=== PATIENT | female | born 2000 | race Two or more races ===

== ENCOUNTER 2023-02-15 06:20 | Inpatient (IN) | payer MEDICAID ==
[~2023-02-15] VITALS: Ht 160 cm; Wt 81.6 kg
[2023-02-15] MEDS ORDERED: OXYTOCIN 30 UNITS/500ML NS PMX 500 ML IV SCH ×2 (10:15)
[2023-02-15] MEDS ORDERED: METHYLERGONOVINE MALEATE 0.2 MG/ML IM PRN ×2 (10:15)
[2023-02-15] MEDS ORDERED: CARBOPROST TROMETHAMINE 250 MCG/ML AMPUL IM PRN (10:15)
[2023-02-15] MEDS ORDERED: LACTATED RINGERS 1,000 ML IV SCH (10:15)
[2023-02-15 10:27] LABS: BASOPHILS % 0.1 % (0.0-2.0); EOSINOPHILS % 0.4 % (0.0-5.0); HEMATOCRIT. 34.4 % (36.0-48.0); HEMOGLOBIN. 11.6 g/dL (12.0-16.0); LYMPHOCYTES % 10.2 % (20.0-50.0); MEAN CORPUSCULAR HEMOGLOBIN 28.7 pg (28.0-32.0); MEAN CORPUSCULAR VOLUME 85.6 fL (81.0-99.0); MEAN PLATELET VOLUME 9.2 fl (7.4-10.4); MONOCYTES % 3.9 % (2.0-8.0); NEUTROPHILS % 85.4 % (40.0-76.0); PLATELET 243 x1000/uL (130-400); RED BLOOD CELL COUNT 4.02 mill/uL (4.2-5.4); RED CELL DISTRIBUTION WIDTH 14.4 % (11.6-14.6)
[2023-02-15 10:41] LABS: INR 0.9; PARTIAL THROMBOPLASTIN TIME 26.2 sec (23.4-31.0); PROTHROMBIN TIME 10.1 sec (9.6-11.0)
[2023-02-15 12:24] VITALS: O2SAT 99
[2023-02-15 13:12] VITALS: BP 102/65; PULSE 100; RESP 20; TEMP 98.6
[2023-02-15 14:17] LABS: HEPATITIS B SURFACE ANTIGEN NEGATIVE
[2023-02-15 16:10] VITALS: BP 119/68; PULSE 98; RESP 18; TEMP 98.4
[2023-02-15 20:00] VITALS: BP 124/66; PULSE 90; RESP 18; TEMP 98.4; O2SAT 97
[2023-02-15] MEDS: IBUPROFEN 800MG TABLET PO PRN (21:02)
[2023-02-15 21:51] LABS: CLARITY URINE CLOUDY (CLEAR); COLOR URINE ORANGE (YELLOW); KETONES URINE NEGATIVE (NEGATIVE); LEUKOCYTE ESTERASE URINE TRACE (NEGATIVE); NITRITE URINE NEGATIVE (NEGATIVE); OCCULT BLOOD URINE 3+ (NEGATIVE); PH URINE 6.5 (4.5-8.0); PROTEIN URINE TRACE (NEGATIVE); SPECIFIC GRAVITY URINE 1.015 (1.005-1.030); UROBILINOGEN URINE 0.2 E.U./dL (0.2-1.0)
[2023-02-15 22:12] LABS: *AMPHETAMINES SCREEN URINE NEGATIVE (NEGATIVE); *BARBITURATES SCREEN URINE NEGATIVE (NEGATIVE); *BENZODIAZEPINES SCREEN URINE NEGATIVE (NEGATIVE); *COCAINE SCREEN URINE NEGATIVE (NEGATIVE); CANNABINOID URINE SCREEN NEGATIVE (NEGATIVE); METHADONE URINE SCREEN NEGATIVE (NEGATIVE); OPIATES URINE SCREEN NEGATIVE (NEGATIVE); PHENCYCLIDINE URINE SCREEN NEGATIVE (NEGATIVE)
[2023-02-16 04:00] VITALS: BP 115/67; PULSE 85; RESP 18; TEMP 98
[2023-02-16] MEDS: IBUPROFEN 800MG TABLET PO PRN ×3 (06:18→22:03)
[2023-02-16 07:30] VITALS: BP 112/69; PULSE 87; RESP 18; TEMP 97.9; O2SAT 97
[2023-02-16 07:30] LABS: BASOPHILS % 0.4 % (0.0-2.0); HEMOGLOBIN. 10.1 g/dL (12.0-16.0); LYMPHOCYTES % 20.2 % (20.0-50.0); MEAN CORPUSCULAR HEMOGLOBIN 29.5 pg (28.0-32.0); MEAN CORPUSCULAR VOLUME 84.7 fL (81.0-99.0); MEAN PLATELET VOLUME 8.7 fl (7.4-10.4); MONOCYTES % 5.3 % (2.0-8.0); NEUTROPHILS % 72.1 % (40.0-76.0); PLATELET 231 x1000/uL (130-400); RED BLOOD CELL COUNT 3.43 mill/uL (4.2-5.4); RED CELL DISTRIBUTION WIDTH 14.5 % (11.6-14.6)
[2023-02-16 16:00] VITALS: BP 117/78; PULSE 100; RESP 18; TEMP 98.4
[2023-02-16 19:15] VITALS: BP 114/70; PULSE 93; RESP 18; TEMP 98.6; O2SAT 99
[2023-02-17] MEDS ORDERED: TETANUS, DIPHTHERIA, PERTUSSIS VAC/PF 0.5ML (>10YR OLD) IM ONE (01:30)
[2023-02-17 03:30] VITALS: BP 115/76; PULSE 84; RESP 18; TEMP 98.7
[2023-02-17] MEDS: IBUPROFEN 800MG TABLET PO PRN (06:20)
[2023-02-17 08:00] VITALS: BP 124/69; PULSE 78; RESP 18; TEMP 98.3; O2SAT 98
[2023-02-17] MEDS ORDERED: IBUP-2030 PO (08:23)
== END 2023-02-17 19:22 | disposition home or self-care (01) | DRG 560 ==
LOC: 8 EST LDRP 06:20 → 8EST 14:05
PROVIDERS: ADMIT Obstetrics & Gynecology; ATTEND Obstetrics & Gynecology
PROC: 10E0XZZ Delivery of Products of Conception, External Approach (ICD-10-PCS; principal; 2023-02-15)
DX: O80 Encounter for full-term uncomplicated delivery (principal); Z37.0 Single live birth; Z3A.37 37 weeks gestation of pregnancy
CPT/HCPCS: 36415; 80305; 81003; 85025; 86592; 86703; 86762; 86850; 86900; 87340; 90715; J7120

== ENCOUNTER 2023-06-07 11:43 | Emergency (ER) | payer MEDICAID ==
[~2023-06-07] VITALS: Ht 167.6 cm; Wt 63.0 kg
[~2023-06-07 11:43] MED LIST: IBUP-2030 PO
[2023-06-07 11:59] VITALS: BP 105/82; PULSE 88; RESP 20; TEMP 98.2; O2SAT 98
== END 2023-06-07 14:28 | disposition home or self-care (01) ==
LOC: ER 11:43
DX: Z32.01 Encounter for pregnancy test, result positive (principal)
CPT/HCPCS: 81025; 99282